=== PATIENT | female | born 1960 | race Caucasian/White ===

== ENCOUNTER 2017-01-25 08:52 | Emergency (ER) | payer OTHER ==
[2017-01-25] MEDS ORDERED: ONDANSETRON 4 MG/2 ML VIAL IVP ONE (09:05)
[2017-01-25] MEDS ORDERED: NS 1,000 ML IV ONE (09:10)
[2017-01-25 09:19] LABS: % IMMATURE GRANULYOCYTES 0.5 % (0.0-1.1); ABSOLUTE IMMATURE GRANULOCYTES 0.04 10^3/uL (0.00-0.10); ADD DIFF? NO; ADD MORPH? NO; ADD SCAN? NO; ATYPICAL LYMPHOCYTE FLAG 0 (0-99); FRAGMENT RBC FLAG 0 (0-99); HEMATOCRIT 44.2 % (38.0-47.0); HEMOGLOBIN 14.9 g/dL (12.6-16.3); LEFT SHIFT FLG 0 (0-99); LIPEMIA HEMOLYSIS FLAG 80 (0-99); MEAN CELL HEMOGLOBIN 30.2 pg (27.9-34.1); MEAN CELL HEMOGLOBIN CONCENTR. 33.7 g/dL (32.4-36.7); MEAN CELL VOLUME 89.5 fL (81.5-99.8); MEAN PLATELET VOLUME 9.1 fL (8.7-11.7); PLATELET CLUMPS FLAG 10 (0-99); PLATELET COUNT 286 10^3/uL (150-400); RED BLOOD CELL COUNT 4.94 10^6/uL (4.18-5.33); RED CELL DISTRIBUTION WIDTH 12.4 % (11.5-15.2)
--- NOTE | 2017-01-25 09:22 | CPEKG ---
Heart Rate: 97 RR Interval: 619 P-R Interval: 172 QRSD Interval: 84 QT Interval: 360 QTC Interval: 458 P Starbuck: 74 QRS Starbuck: 35 T Wave Starbuck: 76 EKG Severity - NORMAL ECG - EKG Impression: SINUS RHYTHM Electronically Signed By: Omid Meade 26-Jan-2017 12:24:43
[2017-01-25 09:28] LABS: INR 1.08 (0.83-1.16); PROTIME(PATIENT) 13.9 SEC (12.0-15.0)
--- NOTE | 2017-01-25 09:28 | EDPHY ---
General Narrative: CHIEF COMPLAINT: Left flank plain HISTORY OF PRESENT ILLNESS: Patient complains of left flank pain over the past 2-3 days and some dizziness. The dizziness has been present for nearly a month. No chest pain. Very colicky type dizziness and lightheadedness that she cannot describe well. The flank pain is [id number]. It comes and goes. No dysuria. No hematuria. No trauma or injury. No change in her bowel or bladder. Nausea but no vomiting. No other associated complaints or modifying factors. Patient is reported as special needs by her family member bedside who is her legal guardian. REVIEW OF SYSTEMS: Ten systems reviewed and are negative unless otherwise noted in the HPI PAST MEDICAL HISTORY: Cognitive delay. Hypertension PAST SURGICAL HISTORY: None SOCIAL HISTORY: Nonsmoker. Lives with her family members FAMILY HISTORY: Noncontributory EXAMINATION General Appearance: Alert, no distress Head: normocephalic, atraumatic Eyes: Pupils equal and round, no conjunctival pallor or injection ENT, Mouth: Mucous membranes moist. Airway patent Neck: Normal inspection, supple, non-tender Respiratory: Lungs are clear to auscultation. No wheeze, rhonchi or crackles Cardiovascular: Regular rate and rhythm. No murmur. Gastrointestinal: Abdomen is soft and nondistended. Left CVA tenderness. No rigidity. No guarding. No distention Back: non-tender, no bony abnormalities Neurological: A&O, nonfocal, normal gait Skin: Warm and dry, no rash Extremities: Nontender, no pedal edema Psychiatric: Mood and affect normal DIFFERENTIAL DIAGNOSES: Including but not limited to UTI, pyelonephritis, renal colic, nephrolithiasis, ureterolithiasis, colitis, diverticulitis MDM: 9:15 a.m. Left-sided flank and abdominal pain times 3-5 days. Also some mild associated dizziness at times. The dizziness is not present at this time and has been present for months. The feels related to her high blood pressure medication. The left flank pain is currently not present. She is in no acute distress. Vital signs stable. 9:25 a.m. EKG is unremarkable. Labs pending. 10:04 a.m. I have re-evaluated the patient. Laboratory studies reveal no leukocytosis. Urinalysis suggest possibility of stone. I discussed renal ultrasound versus CT scan. The patient and her locket maker family member at bedside prefer that we proceed with a noncontrast CT. This has been ordered. 10:50 a.m. Notified by radiologist Dr. Madrigal. CT scan of the abdomen pelvis reveals a nonobstructing small left-sided stone. No other acute findings. 11:00 a.m. I have re-evaluated the patient. She is resting comfortably in no acute distress. We discussed going home with urine strainer to potentially capture the stone. We discussed Urology follow up primary care physician follow-up. I recommend they discussed the high blood pressure medication in the lightheadedness with her primary care physician. They are both comfortable this plan. She is discharged home stable condition with ED precautions for the stone. - Diagnostics Imaging Results: Imaging Impressions Abdomen/Pelvis CT 01/25/17 10:15 Impression: 1. Left nephrolithiasis. 2. No hydronephrosis or obstructing ureteral calculi. 3. Sigmoid diverticulosis. No acute diverticulitis or localized intraabdominal inflammatory process. Findings discussed with Emergency Department physician's registered dental assistant, Saad Villalta , at 1050 hours 01/25/2017. Attention: This CT examination is specifically designed to evaluate patients who are clinically suspected of having acute obstructive uropathy. This examination does not use radiographic contrast, and as such, provides only a limited evaluation of the abdomen, pelvis and retroperitoneum. If there is further clinical suspicion for pathologic conditions other than obstructive uropathy, a complete CT evaluation of the abdomen and pelvis utilizing intravenous, oral, and rectal contrast should be considered. - History Smoking Status: Never smoked - Objective Vital Signs: Initial Vital Signs Temperature (C) 98.1 F 01/25/17 08:52 Heart Rate 103 H 01/25/17 08:52 Respiratory Rate 18 01/25/17 08:52 Blood Pressure 134/103 H 01/25/17 08:52 O2 Sat (%) 96 01/25/17 08:52 O2 Delivery Mode Room Air Allergies/Adverse Reactions: No Known Allergies Allergy (Unverified 01/25/17 08:57) Home Medications: Medication Instructions Recorded Hydrocodone/APAP 5/325 [[place] 1 - 2 tab PO Q4H PRN #13 tab 01/25/17 5/325 (*)] Metoprolol ER-Hctz 100-12.5 mg 01/25/17 Ondansetron Odt [Zofran Odt 4 mg 4 mg PO Q6 PRN #12 tab 01/25/17 (*)] buPROPion 01/25/17 Laboratory Results: Laboratory Results 01/25/17 09:10 01/25/17 09:10 01/25/17 01/25/17 01/25/17 09:20 09:10 09:10 WBC RBC Hgb Hct MCV MCH MCHC RDW Plt Count MPV Neut % (Auto) Lymph % (Auto) [place] % (Auto) Eos % (Auto) Baso % (Auto) Nucleat RBC Rel Count Absolute Neuts (auto) Absolute Lymphs (auto) Absolute Monos (auto) Absolute Eos (auto) Absolute Basos (auto) Absolute Nucleated RBC Immature Gran % Immature Gran # PT INR APTT Sodium 137 mEq/L mEq/L (134-144) Potassium 4.3 mEq/L mEq/L (3.5-5.2) Chloride 103 mEq/L mEq/L (97-110) Carbon Dioxide 23 mEq/l mEq/l (22-31) Anion Gap 11 mEq/L mEq/L (8-16) BUN 16 mg/dL mg/dL (7-23) Creatinine 1.0 mg/dL mg/dL (0.6-1.0) Estimated GFR 57 Glucose 99 mg/dL mg/dL (70-100) Calcium 10.1 mg/dL mg/dL (8.5-10.4) Total Bilirubin 1.5 mg/dL H mg/dL (0.1-1.4) Conjugated Bilirubin 0.2 mg/dL mg/dL (0.0-0.5) Unconjugated Bilirubin 1.3 mg/dL H mg/dL (0.0-1.1) AST 35 IU/L IU/L (14-46) ALT 55 IU/L H IU/L (9-52) Alkaline Phosphatase 59 IU/L IU/L (38-126) Troponin I < 0.012 ng/mL ng/mL (0.000-0.034) Total Protein 7.7 g/dL g/dL (6.3-8.2) Albumin 4.5 g/dL g/dL (3.5-5.0) Lipase 111 IU/L IU/L (23-300) Beta HCG, Qual NEGATIVE Urine Color YELLOW Urine Appearance HAZY Urine pH 7.0 (5.0-7.5) Ur Specific [place] 1.014 (1.002-1.030) Urine Protein NEGATIVE (NEGATIVE) Urine Ketones NEGATIVE (NEGATIVE) Urine Blood 1+ H (NEGATIVE) Urine Nitrate NEGATIVE (NEGATIVE) Urine Bilirubin NEGATIVE (NEGATIVE) Urine Urobilinogen NEGATIVE EU EU (0.2-1.0) Ur Leukocyte Esterase NEGATIVE (NEGATIVE) Urine RBC 1-3 /hpf /hpf (0-3) Urine WBC 15-25 /hpf H /hpf (0-3) Ur Epithelial Cells NONE SEEN /lpf /lpf (NONE-1+) Urine Mucus TRACE /lpf /lpf (NONE-1+) Urine Glucose NEGATIVE (NEGATIVE) 01/25/17 01/25/17 09:10 09:10 WBC 8.68 10^3/uL 10^3/uL (3.80-9.50) RBC 4.94 10^6/uL 10^6/uL (4.18-5.33) Hgb 14.9 g/dL g/dL (12.6-16.3) Hct 44.2 % % (38.0-47.0) MCV 89.5 fL fL (81.5-99.8) MCH 30.2 pg pg (27.9-34.1) MCHC 33.7 g/dL g/dL (32.4-36.7) RDW 12.4 % % (11.5-15.2) Plt Count 286 10^3/uL 10^3/uL (150-400) MPV 9.1 fL fL (8.7-11.7) Neut % (Auto) 77.4 % H % (39.3-74.2) Lymph % (Auto) 12.1 % L % (15.0-45.0) [place] % (Auto) 8.6 % % (4.5-13.0) Eos % (Auto) 0.6 % % (0.6-7.6) Baso % (Auto) 0.8 % % (0.3-1.7) Nucleat RBC Rel Count 0.0 % % (0.0-0.2) Absolute Neuts (auto) 6.72 10^3/uL H 10^3/uL (1.70-6.50) Absolute Lymphs (auto) 1.05 10^3/uL 10^3/uL (1.00-3.00) Absolute Monos (auto) 0.75 10^3/uL 10^3/uL (0.30-0.80) Absolute Eos (auto) 0.05 10^3/uL 10^3/uL (0.03-0.40) Absolute Basos (auto) 0.07 10^3/uL 10^3/uL (0.02-0.10) Absolute Nucleated RBC 0.00 10^3/uL 10^3/uL (0-0.01) Immature Gran % 0.5 % % (0.0-1.1) Immature Gran # 0.04 10^3/uL 10^3/uL (0.00-0.10) PT 13.9 SEC SEC (12.0-15.0) INR 1.08 (0.83-1.16) APTT 25.0 SEC SEC (23.0-38.0) Sodium Potassium Chloride Carbon Dioxide Anion Gap BUN Creatinine Estimated GFR Glucose Calcium Total Bilirubin Conjugated Bilirubin Unconjugated Bilirubin AST ALT Alkaline Phosphatase Troponin I Total Protein Albumin Lipase Beta HCG, Qual Urine Color Urine Appearance Urine pH Ur Specific [place] Urine Protein Urine Ketones Urine Blood Urine Nitrate Urine Bilirubin Urine Urobilinogen Ur Leukocyte Esterase Urine RBC Urine WBC Ur Epithelial Cells Urine Mucus Urine Glucose Medications Given: Discontinued Medications Sodium Chloride (Ns) 1,000 mls @ 3,000 mls/hr IV ONCE ONE Stop: 01/25/17 09:29 Last Admin: 01/25/17 09:11 Dose: 1,000 mls Ondansetron HCl (Zofran) 4 mg IVP EDNOW ONE Stop: 01/25/17 09:06 Last Admin: 01/25/17 09:10 Dose: 4 mg Departure - Departure Disposition: Home, Routine, Self-Care Clinical Impression: Nephrolithiasis, Acute flank pain Condition: Good Instructions: Kidney Stones (ED), Flank Pain (ED) Additional Instructions: 1. Contact primary care physician to discuss hypertension, dizziness and left kidney stone 2. Pain medication as needed 3. Contact Urology for definitive care of the left kidney stone 4. ED precautions for fever, worsening pain, nausea vomiting, difficulty urinating Referrals: Raiza Montemayor PA [Primary Care Provider] - As per Instructions Bear Muñiz MD [Medical Doctor] - As per Instructions Prescriptions: Hydrocodone/APAP 5/325 [[place] 5/325 (*)] 1 - 2 tab PO Q4H PRN #13 tab PRN Reason: Pain, Moderate Ondansetron Odt [Zofran Odt 4 mg (*)] 4 mg PO Q6 PRN #12 tab PRN Reason: Nausea/Vomiting, Use 1st
[2017-01-25 09:30] LABS: ALANINE AMINOTRANSFERASE 55 IU/L (9-52); ALBUMIN 4.5 g/dL (3.5-5.0); ALKALINE PHOSPHATASE 59 IU/L (38-126); ANION GAP 11 mEq/L (8-16); ASPARTATE AMINOTRANSFERASE 35 IU/L (14-46); BILIRUBIN,TOTAL 1.5 mg/dL (0.1-1.4); BILIRUBIN-CONJUGATED 0.2 mg/dL (0.0-0.5); BILIRUBIN-UNCONJUGATED 1.3 mg/dL (0.0-1.1); CALCIUM 10.1 mg/dL (8.5-10.4); CARBON DIOXIDE 23 mEq/l (22-31); CHLORIDE 103 mEq/L (97-110); GLOMERULAR FILTRATION RATE 57; GLUCOSE 99 mg/dL (70-100); POTASSIUM 4.3 mEq/L (3.5-5.2); SODIUM 137 mEq/L (134-144); TOTAL PROTEIN 7.7 g/dL (6.3-8.2)
[2017-01-25 09:41] LABS: TROPONIN I < 0.012 ng/mL (0.000-0.034)
[2017-01-25 09:43] LABS: COLOR YELLOW; LEUKOCYTE ESTERASE,URINE NEGATIVE (NEGATIVE); NITRITE,URINE NEGATIVE (NEGATIVE)
[2017-01-25 09:48] LABS: MUCUS TRACE /lpf (NONE-1+); WBC,URINE 15-25 /hpf (0-3)
[2017-01-25 11:24] VITALS: BP 126/87; PULSE 82; RESP 15; TEMP 97.5; O2SAT 96
== END 2017-01-25 11:15 | disposition home or self-care (01) ==
DX: N20.0 Calculus of kidney (principal); I10 Essential (primary) hypertension; R42 Dizziness and giddiness
CPT/HCPCS: 74176; 93005; 96361; 96374; 99285; J2405

== ENCOUNTER → 2017-12-31 | Outpatient (CLI) | payer OTHER ==
[~2017-12-31] MED LIST: IOPAMIDOL (ISOVUE-300) 100 ML BTL ONE; diphenhydrAMINE 25 MG CAP PO ONE
== END ==
LOC: FIMAGING 10:25
PROVIDERS: ATTEND Physician Assistant
DX: J90 Pleural effusion, not elsewhere classified (principal); I51.7 Cardiomegaly; Z85.118 Personal history of other malignant neoplasm of bronchus and lung
CPT/HCPCS: 71260; Q9967

== ENCOUNTER → 2018-01-25 | Outpatient (CLI) | payer OTHER | LOC: BHFA 14:00 | PROVIDERS: ATTEND Internal Medicine Cardiovascular Disease | DX: I31.3 Pericardial effusion (noninflammatory) (principal) ==